=== PATIENT | female | born 1995 | race Caucasian/White ===

== ENCOUNTER 2020-06-11 13:18 | Emergency (ER) | payer BC, SELFPAY ==
--- NOTE | 2020-06-11 13:28 | PC.NURSE ---
pt was called by her boss that she was in the wrong facility to have her blood drawn. She is leaving here to go to the place that she has been instructed by her employer to go.
== END 2020-06-11 13:21 | disposition left against medical advice (07) ==
LOC: ANHED 15:06
DX: Z53.21 Procedure and treatment not carried out due to patient leaving prior to being seen by health care provider (principal)
CPT/HCPCS: 99199

== ENCOUNTER 2021-05-20 12:54 | Emergency (ER) | payer BC, SELFPAY ==
--- NOTE | 2021-05-20 12:55 | ECG_ITS ---
Measurements Intervals [place] Rate: 107 P: 73 [place]: 124 QRS: 56 QRSD: 84 T: 9 QT: 320 QTc: 429 Interpretive Statements SINUS TACHYCARDIA BORDERLINE ST-T WAVE ABNORMALITY- ANT/INF LEADS ABNORMAL ECG Electronically Signed On 05-20-2021 13:33:51 LOCAL TELEPHONE OPERATOR by Tapan Morales D.O.
[2021-05-20 13:02] VITALS: BP 135/85; PULSE 107; RESP 16; TEMP 36.9; O2SAT 100
[2021-05-20 15:03] VITALS: BP 129/88; PULSE 92; RESP 20; O2SAT 98
--- NOTE | 2021-05-20 16:23 | PC.NURSE ---
RN in to draw pt. blood. states she does not wish to have any further testing. pt. states I feel fine, can I just go see my doctor and go home. made aware. pt. states she does not wish to talk to ERP. Pt. amb out of ed with steady gait. pt. VSS.
== END 2021-05-20 15:03 | disposition left against medical advice (07) ==
PROVIDERS: Emergency Provider Emergency Medicine
DX: R00.0 Tachycardia, unspecified (principal)
CPT/HCPCS: 93005; 99199